=== PATIENT | female | born 1965 | race Caucasian/White ===

== ENCOUNTER → 2017-04-20 | Outpatient (CLI) | payer BC ==
[~2017-04-20] MED LIST: BCPILLS PO; MULT-506 PO
== END | disposition home or self-care (01) ==
LOC: C.LAB 07:37
PROVIDERS: ATTEND Nutritionist
DX: R53.83 Other fatigue (principal)

== ENCOUNTER → 2017-08-14 | Outpatient (CLI) | payer OTHER ==
[~2017-08-14] MED LIST changes: +AMINO ACIDS PO; +ENOX40IN SQ; +HYDR-5688 PO; +MAGNESIUM PO; +VITAMIN C PO; +VITAMIN D PO; +[UNRECOGNIZED DRUG - OTHER] PO
--- NOTE | 2017-08-14 17:44 | DIAGNOSTIC IMAGING REPORT ---
CT L LOWER EXTREMITY WITHOUT CT DOSE: 159.58 mGy.cm CLINICAL HISTORY: Left knee pain. Fracture. TECHNIQUE: Helical images were acquired in the transverse plane. Sagittal and coronal reformatted images were acquired. A dose lowering technique was utilized adhering to the principles of ALARA. COMPARISON STUDY: None. FINDINGS: There is a joint effusion present. No patellar fractures are visualized. No fractures the distal femur are visualized. There is a mildly comminuted longitudinal fracture through the lateral tibial plateau with 13 mm of distraction at the articular surface. There is a nonspecific sclerotic focus within the lateral tibial plateau measuring 22 mm. It is not possible with certainty to determine with this relates to trauma or was pre-existing. There is a mildly comminuted fracture of the proximal fibula with 4 mm of displacement. IMPRESSION: 1. Mildly comminuted longitudinal fracture through the lateral tibial plateau with 13 mm of distraction at the articular surface 2. Mildly comminuted fracture the proximal fibula 3. 22 mm sclerotic lesion within the lateral tibial plateau. While this likely is posttraumatic, a pre-existing sclerotic lesion cannot be excluded Electronically signed by: Kevin Degroot M.D. 08/14/2017 5:42 PM Dictated Date/Time: 08/14/2017 5:37 PM
== END | disposition home or self-care (01) ==
LOC: C.CTS 17:09
PROVIDERS: ATTEND Orthopaedic Surgery Sports Medicine
DX: S82.142A Displaced bicondylar fracture of left tibia, initial encounter for closed fracture (principal); X58.XXXA Exposure to other specified factors, initial encounter; M89.9 Disorder of bone, unspecified

== ENCOUNTER → 2017-08-17 | Outpatient (CLI) | payer OTHER ==
[~2017-08-17] MED LIST changes: +ACET-24 PO; +RXC5 PO
[2017-08-17 18:00] LABS: BASO % 0.4 %; BASO ABS # 0.04 K/uL (0-0.2); EOS % 2.2 %; HEMATOCRIT 36.5 % (37-47); HEMOGLOBIN 11.4 g/dL (12.0-16.0); IG# 0.03 K/uL (0.00-0.02); LYMPH % 19.4 %; MEAN CELL VOLUME 77.3 fL (80-100); MEAN CORPUSCULAR HEMOGLOBIN 24.2 pg (25-34); MEAN CORPUSCULAR HGB CONC 31.2 g/dl (32-36); MEAN PLATELET VOLUME 8.5 fL (7.4-10.4); MONO % 8.8 %; MONO ABS # 0.82 K/uL (0.11-0.59); NEUT % 68.9 %; PLATELET COUNT 570 K/uL (130-400); RED CELL DISTRIBUTION WIDTH CV 17.5 % (11.5-14.5); RED CELL DISTRIBUTION WIDTH SD 49.1 fL (36.4-46.3); WHITE BLOOD COUNT 9.29 K/uL (4.8-10.8)
[2017-08-17 18:04] LABS: INR 0.9 (0.9-1.1); PTT PATIENT 26.2 SECONDS (21.0-31.0)
[2017-08-17 18:29] LABS: BLOOD UREA NITROGEN 19 mg/dl (7-18); CALCIUM 9.7 mg/dl (8.5-10.1); CARBON DIOXIDE 28 mmol/L (21-32); CREATININE 0.96 mg/dl (0.60-1.20); GLUCOSE 93 mg/dl (70-99); POTASSIUM 3.9 mmol/L (3.5-5.1); SODIUM 139 mmol/L (136-145)
== END | disposition home or self-care (01) ==
LOC: C.LAB 16:59
PROVIDERS: ATTEND Orthopaedic Surgery Sports Medicine
DX: Z01.812 Encounter for preprocedural laboratory examination (principal); Z01.810 Encounter for preprocedural cardiovascular examination

== ENCOUNTER 2017-08-18 13:28 | Inpatient (IN) | payer OTHER ==
[2017-08-17 15:26] VITALS: BMI 29.0
--- NOTE | 2017-08-17 21:35 | HISTORY & PHYSICAL EXAMINATION ---
DATE OF ADMISSION: 08/18/2017 CHIEF COMPLAINT: Left knee injury. HISTORY OF PRESENT ILLNESS: This is a 52-year-old female patient of Dr. Vargas'park complaining of a left knee injury approximately 3 weeks ago. The patient was skiing in [place] and sustained a knee injury. She was diagnosed with a tibial plateau fracture and wished to proceed with an open reduction internal fixation of a tibial plateau fracture. PAST MEDICAL HISTORY: Obesity. Otherwise, the patient is a very healthy 52-year-old female with no heart problems, lung problems, diabetes or cancer history. FAMILY HISTORY: Noncontributory. REVIEW OF SYSTEMS: The patient complains of recent left knee pain and dysfunction. Otherwise, denies any shortness of breath, chest pain, nausea, vomiting or any other joint complaints. SOCIAL HISTORY: Nonsmoker, occasional drinker. SURGICAL HISTORY: . MEDICATIONS: No regular medications. ALLERGIES: No known drug allergies. PHYSICAL EXAMINATION: GENERAL: Well-developed, well-nourished 52-year-old female in no acute distress. She is alert and oriented x3 and pleasant. HEENT: Normocephalic, atraumatic. Extraocular motions are intact. Pupils are equal and reactive to light. HEART: Regular rate and rhythm, no murmurs appreciated. LUNGS: Clear. ABDOMEN: Soft and nontender. EXTREMITIES: Left knee is neurologically and neurovascularly intact. Range of motion and strength testing were deferred. DIAGNOSES: Left knee lateral tibial plateau fracture with a history of obesity. PLAN: The patient was advised of her diagnosis. Indications, risks, benefits, postop course have all been reviewed. The patient wished to proceed with a left knee ORIF lateral tibial plateau fracture. Necessary consent forms, preoperative testing clearances will be obtained. [facility] INSANEDorothea
[~2017-08-18] VITALS: Ht 170.2 cm; Wt 86.4 kg
[~2017-08-18 13:28] MED LIST changes: -ACET-24 PO; -BCPILLS PO; +CEFAZOLIN 2000MG IV PUSH 15 ML IV SCH; -RXC5 PO
[2017-08-18 13:53] VITALS: BP 126/87; PULSE 104; TEMP 36.7; O2SAT 99; Ht 170.2 cm; Wt 86.4 kg
[2017-08-18] MEDS ORDERED: EpHEDrine SULFATE INJ 50 MG/ML AMP IV PRN (15:00)
[2017-08-18] MEDS ORDERED: ATROPINE SULFATE 0.1 MG/ML 5ML SYR IV PRN (15:00)
[2017-08-18] MEDS ORDERED: ONDANSETRON INJ 2 MG/ML 2 ML VIAL IV PRN ×2 (15:00→19:30)
[2017-08-18] MEDS ORDERED: BACITRACIN 50000 UNIT VIAL ONE (15:18)
[2017-08-18] MEDS ORDERED: MIDAZOLAM HCL 1 MG/ML 2ML VIAL ONE (15:58)
[2017-08-18] MEDS ORDERED: FENTANYL CITRATE INJ 50 MCG/1 ML 2 ML VIAL ONE ×3 (15:59→19:08)
--- NOTE | 2017-08-18 15:59 | History & Physical Bridge Note ---
H&P Re-Evaluation Bridge Note: I have examined the patient, reviewed the History & Physical and in the interval since the performance of the History & Physical I have noted the following changes of clinical significance: No changes noted
[2017-08-18] MEDS ORDERED: HYDROmorphone INJ 2 MG/ML SYR/VIAL ONE ×2 (16:26→20:06)
[2017-08-18] MEDS ORDERED: LIDOCAINE HCL 2% 2 ML VIAL (20MG/ML) ONE (18:42)
[2017-08-18] MEDS ORDERED: ONDANSETRON INJ 2 MG/ML 2 ML VIAL ONE (18:42)
[2017-08-18] MEDS ORDERED: LARYING-O-JET KIT (LTA) ONE (18:42)
[2017-08-18] MEDS ORDERED: ROCURONIUM BROMIDE 10 MG/ML 5 ML VIAL IV ONE (18:42)
[2017-08-18] MEDS ORDERED: PROPOFOL IV EMULSION 10 MG/ML 20 ML VIAL IV ONE (18:42)
[2017-08-18] MEDS ORDERED: DEXAMETHASONE SOD INJ 4 MG/ML VIAL ONE (18:42)
[2017-08-18] MEDS ORDERED: NEOSTIGMINE METHYLSULFATE 5 MG/5 ML SYR ONE (19:04)
[2017-08-18] MEDS ORDERED: GLYCOPYRROLATE INJ 0.2 MG/ML VIAL ONE (19:04)
--- NOTE | 2017-08-18 19:23 | [facility] Post Operative Brief Note ---
Immediate Operative Summary Operative Date Aug 18, 2017. Pre-Operative Diagnosis Left knee displaced lateral tibial plateau fracture,proximal comminuted fibula fracture Post-Operative Diagnosis same with, left peripheral lateral meniscal tear Procedure(s) Performed Left Knee Open Reduction Internal Fixation Tibial Plateau Fracture,arthrotomomy with Left Lateral Meniscal Repair Surgeon Dr. Vargas Playground Monitor Surgeon(s) Sanjay PAUL Estimated Blood Loss 25ml Findings Consistent with Post-Op Diagnosis Specimens none per surgeon Drains 2 hemovac Anesthesia Type General Complication(s) none Disposition Disposition: Recovery Room / PACU
[2017-08-18] MEDS: SODIUM CHLORIDE 0.9% 1000ML 1,000 ML IV SCH (19:25)
[2017-08-18] MEDS ORDERED: OXYCODONE HCL IR 5 MG TAB (IMMEDIATE RELEASE) PO PRN (19:30)
[2017-08-18] MEDS ORDERED: ZOLPIDEM TARTRATE 5 MG TAB PO PRN (19:30)
[2017-08-18] MEDS ORDERED: CEFAZOLIN IV 2,000 MG in DEXTROSE 5% 50ML 50 ML IV SCH (19:30)
[2017-08-18] MEDS ORDERED: NALOXONE HCL 0.4 MG/1 ML VIAL/CARP IV PRN (19:30)
[2017-08-18] MEDS ORDERED: METOCLOPRAMIDE HCL INJ 5 MG/ML 2 ML VIAL IV PRN (19:30)
--- NOTE | 2017-08-18 19:31 | DIAGNOSTIC IMAGING REPORT ---
L KNEE 1 OR 2 VIEWS CLINICAL HISTORY: LT ORIF TIBIAL PLATEAU COMPARISON STUDY: Left knee CT 08/14/2017. FINDINGS: Total fluoroscopy time is 2 minutes and 19 seconds. 3 fluoroscopic spot images of the left knee. Lateral cortical plate transfixed with screws bridging the lateral tibial plateau fracture. The hardware appears intact. Redemonstration of a displaced fracture at the fibular head. IMPRESSION: Fluoroscopy provided for internal fixation of a lateral tibial plateau fracture. Electronically signed by: Thor Mueller M.D. 08/18/2017 7:30 PM Dictated Date/Time: 08/18/2017 7:29 PM
[2017-08-18] MEDS: FENTANYL CITRATE INJ 50 MCG/1 ML 2 ML VIAL IV PRN ×2 (19:41→19:46)
[2017-08-18] MEDS: HYDROmorphone INJ 1 MG/ML SYR IV PRN ×7 (19:48→20:18)
[2017-08-18] MEDS ORDERED: IV FLUIDS COMPLETED PRN (20:15)
--- NOTE | 2017-08-18 20:25 | Anesthesiology Progress Note ---
Anesthesia Post Op Note Date & Time Aug 18, 2017 at 20:24 Vital Signs Pain Intensity: 8 Vital Signs Past 12 Hours Date Time Temp Pulse Resp B/P (MAP) Pulse Ox O2 Delivery O2 Flow Rate FiO2 08/18/17 20:01 153/90 08/18/17 19:58 70 12 99 08/18/17 19:58 71 12 08/18/17 19:58 36.8 67 16 153/90 99 Nasal Cannula 2 08/18/17 19:56 148/91 08/18/17 19:53 69 8 08/18/17 19:53 69 8 96 08/18/17 19:50 157/94 08/18/17 19:48 68 8 100 08/18/17 19:48 68 8 08/18/17 19:47 75 16 100 08/18/17 19:47 76 16 08/18/17 19:46 164/100 08/18/17 19:46 164/100 08/18/17 19:43 70 8 08/18/17 19:43 70 8 08/18/17 19:43 71 8 100 08/18/17 19:43 71 8 100 08/18/17 19:41 151/105 08/18/17 19:41 151/105 08/18/17 19:38 77 14 08/18/17 19:38 77 14 08/18/17 19:38 78 14 100 08/18/17 19:38 78 14 100 08/18/17 19:36 148/104 08/18/17 19:36 148/104 08/18/17 19:33 90 13 156/112 100 08/18/17 19:33 91 13 08/18/17 19:33 36.3 87 12 156/112 (117) 100 Oxymask 10 08/18/17 19:33 91 13 08/18/17 19:33 90 13 156/112 100 08/18/17 13:53 36.7 104 20 126/87 (100) 99 Room Air Notes Mental Status: alert / awake / arousable, participated in evaluation Pt Amnestic to Procedure: Yes Nausea / Vomiting: adequately controlled Pain: adequately controlled, improving with treatment Airway Patency, RR, SpO2: stable & adequate BP & HR: stable & adequate Hydration State: stable & adequate Anesthetic Complications: no major complications apparent DIRECTOR PHARMACOLOGY to be started in PACU.
[2017-08-18] MEDS ORDERED: MoRPHine SULFATE 1 MG/ML 50 ML PCA CASS ONE (20:29)
[2017-08-18 21:00] VITALS: BP 137/80; PULSE 74; TEMP 37.4; O2SAT 99
[2017-08-18 21:38] VITALS: BP 143/86; PULSE 65; TEMP 36.8; O2SAT 99
--- NOTE | 2017-08-18 21:43 | OPERATIVE REPORT ---
DATE OF OPERATION: 08/18/2017 INDICATION FOR PROCEDURE: The patient is a 52-year-old female who was skiing in [place]. She injured her left knee. Sustained a significant split displaced comminuted lateral tibial plateau fracture with proximal fibular comminuted fracture. She had an unstable knee. She is unable to ambulate. She was treated in [place] by immobilization and she was placed on Lovenox. She returned [place] 5 days later, was evaluated, had a CT scan and this verified the comminuted split fracture. There was one depressed fragment which was angulated into smaller comminuted fragments. The injury is closed. PREOPERATIVE DIAGNOSIS: Left knee comminuted lateral tibial plateau fracture, split depression with a comminuted proximal fibular fracture. POSTOPERATIVE DIAGNOSIS: Same including a lateral meniscus tear peripheral 2/3 disruption from the capsule. PROCEDURE: Left knee ORIF tibial plateau fracture with a Synthes locking lateral buttress plate with an arthrotomy of the knee required to perform a open lateral meniscus repair. SURGEON: Ruddy Vargas MD. [employer] ARCHITECT: HUMBERTO Washburn. ANESTHESIA: General. OPERATIVE PROCEDURE: The patient was taken to the operating room, anesthetized under general anesthetic. Pneumatic tourniquet placed on left upper thigh. She had moderate swelling of the knee, calf and down to the foot with old ecchymosis. No fracture blisters. No skin problems. We examined her knee. She could have valgus instability, but no varus instability and her Smitha exam was stable with a firm endpoint. The pneumatic tourniquet was placed on left upper thigh. Left lower extremity was prepped and draped with ChloraPrep. Leg was elevated, exsanguinated with Esmarch bandage. Pneumatic tourniquet was raised to 350 mmHg. An anterior incision was made across the knee staying just lateral to the midline starting around the proximal metaphysis diaphysis of the tibia extending up just lateral to the patella and about 2.5 to 3 cm proximal to the patella just to the lateral side. Skin was incised sharply. Subcutaneous flaps were elevated. The tibialis anterior fascia was split leaving a cuff of tissue for repair adjacent to the tibia anteriorly. This incision was taken up into the fracture line. The fracture line was just medial to Gerdy's tubercle, but lateral to the patella tendon attachment which was completely intact to the anterior tibia. The incision was carried up through the lateral retinaculum. Then we made an arthrotomy in the knee joint to evacuate any hematoma, inspected the knee joint which demonstrate she had a significant lateral meniscus tear and peripheral tear with displacement. The meniscus was torn from the popliteus fossa around to the anterior meniscus but the root attachment was intact anteriorly and posteriorly. At this time, we hinged open the fracture site, irrigated out the hematoma, elevated the one large fragment that was in more of a vertical position, removed several comminuted fragments and some of them had articular surface, but they were too small to whipple back in a meaningful fashion. There was some comminution at the spike of the shaft noted as well. The proximal fragment was then exposed by releasing Gerdy's tubercle and the IT band off the fragment leaving the retinacular and capsular attachments intact to the tibia and reflecting the IT band posteriorly and subperiosteally bring up the tibialis anterior off the bone fragment and some of the shaft, so we could place the plate along the lateral shaft of the tibia and around the proximal metaphysis of the joint just below the joint line. At this point, had to first manipulate the meniscus, so we would not have it captured within the fracture site and to do that, we had to place a Vicryl traction suture in the meniscus and then subsequently I placed four #2 FiberWire sutures in a vertical fashion through the tear from the popliteus fossa to anterior. Then we placed the traction sutures out through the arthrotomy, so we lift the meniscus up and reduce the lateral split fragment to the tibia. It was reduced, held in position. We visualized this on fluoroscopic guidance and then placed the temporary K-wire to maintain the elevation and alignment and applied the plate. Then used a clamp to help close the fracture and then placed a lag screw through one of the proximal holes in the middle of the plate a second hole from the anterior with a partially threaded lag screw. We got bicortical fixation, so we could lag this tightly compressing the fracture. Then the plate was lagged with another cortical screw which was fully threaded cortical screw to the shaft. The plate was the lower profile L-shaped lateral Synthes locking periarticular tibial plateau fracture plate which was a 10-hole plate, 6 holes distal. The small fragment that we elevated up, we manipulated slightly to obtain a near anatomic alignment. There was within a millimeter step off noted which was accepted. The plate was then transfixed with a fully threaded locking screws proximally in the proximal plate from anterior to posterior. They placed 3 more kickstand screws, replaced the proximal partially threaded cortical lag screw for a locking screw and then filled the remainder of the distal holes with locking screws. The fixation was stable. After copious irrigation, the meniscus was then repaired placing the sutures through the meniscus, through the capsule laterally and tying the sutures down and then tying them to each other for further reinforcement and then the Vicryl suture was passed through some of the anterior capsule as well and tied down as well. We had anatomic repair of the meniscus. Then we did leave the tourniquet down, there was just over 2 hours. There was no significant bleeding identified as we closed remainder of the knee. I placed a Hemovac drain into the knee joint and one deep to the tibialis anterior muscle and we brought out anterolaterally. Then the knee joint capsule was closed with [id number] #1 Vicryl sutures. This was done after copiously irrigating the joint and the wound with bulb syringe irrigation with bacitracin. The lateral retinaculum was closed to the IT band proximally and the tibialis anterior fascia was closed distally over the drain with [id number] #1 Vicryl sutures. Then, the subcutaneous tissue closed inverted 2-0 Vicryl, skin was closed with jude. We did make 1 small incision laterally through subcutaneous tissues to place one of the posterior most lateral buttress screw because the angle was too difficult to get with her moderately obese leg and the location of the incision. We carefully placed the small incision during that part of the procedure with small lucy in the skin with a blunt hemostat and made sure it was anterior to the peroneal nerve location and that was done under direct visualization. That was closed with jdue as well. Sterile dressings were applied and a hinged double upright knee brace. The patient tolerated the procedure well without complication at this time. HUMBERTO Washburn was my assistant prosecuting attorney. He functioned as assistant prosecuting attorney throughout the entire procedure. He assisted in patient positioning, prepping, draping, leg positioning, soft tissue retraction, instrument management and assisted in the subcutaneous and skin closure and will participate in postoperative care of the patient. I attest to the content of the Intraoperative Record and any orders documented therein. Any exception s are noted below.
[2017-08-18] MEDS: D5W AND 1/2NSS + 20MEQ KCL 1,000 ML IV SCH (21:44)
[2017-08-18] MEDS: ACETAMINOPHEN 500 MG TAB PO SCH (21:45)
[2017-08-18 22:01] VITALS: BP 143/77; PULSE 69; TEMP 37; O2SAT 100
[2017-08-18 22:56] VITALS: BP 131/84; PULSE 72; TEMP 36.8; O2SAT 99
[2017-08-18] MEDS: MoRPHine SULFATE 1 MG/ML 50 ML PCA CASS IV PRN (23:01)
[2017-08-18] MEDS: CEFAZOLIN IV 2,000 MG in SYRINGE 0 ML IV SCH (23:31)
[2017-08-19 00:07] VITALS: BP 134/84; PULSE 80; TEMP 37; O2SAT 99
[2017-08-19 03:45] VITALS: BP 149/93; PULSE 97; TEMP 37.1; O2SAT 100
[2017-08-19] MEDS: ACETAMINOPHEN 500 MG TAB PO SCH ×3 (05:23→21:33)
[2017-08-19 06:19] LABS: HEMATOCRIT 32.8 % (37-47); HEMOGLOBIN 9.9 g/dL (12.0-16.0); MEAN CELL VOLUME 77.9 fL (80-100); MEAN CORPUSCULAR HEMOGLOBIN 23.5 pg (25-34); MEAN CORPUSCULAR HGB CONC 30.2 g/dl (32-36); MEAN PLATELET VOLUME 8.4 fL (7.4-10.4); PLATELET COUNT 475 K/uL (130-400); RED CELL DISTRIBUTION WIDTH CV 17.3 % (11.5-14.5); WHITE BLOOD COUNT 12.32 K/uL (4.8-10.8)
[2017-08-19 06:49] LABS: CALCIUM 8.5 mg/dl (8.5-10.1); CREATININE 0.86 mg/dl (0.60-1.20); POTASSIUM 4.4 mmol/L (3.5-5.1)
[2017-08-19] MEDS: D5W AND 1/2NSS + 20MEQ KCL 1,000 ML IV SCH ×2 (07:32→17:31)
[2017-08-19] MEDS: CEFAZOLIN IV 2,000 MG in SYRINGE 0 ML IV SCH (07:37)
[2017-08-19] MEDS: PANTOprazole SOD 40 MG TAB PO SCH (08:54)
[2017-08-19] MEDS: MULTIVITAMIN TAB PO SCH (08:54)
[2017-08-19] MEDS: ENOXAPARIN 40 MG/0.4 ML SYR SQ SCH (08:55)
--- NOTE | 2017-08-19 09:47 | Orthopedic Progress Note ---
Orthopedic Progress Note Date of Service Aug 19, 2017. Subjective Post OP Day: 1 Reports: feeling well, using MATERIAL ASSISTANT, Denies: complaints, chest pain, SOB, nausea / vomiting, light headedness, calf pain Objective calves soft nontender, N/V intact, capillary refill less than 2 sec., dressing C /D/I, A&O x3, toes mobile Date Time Temp Pulse Resp B/P (MAP) Pulse Ox O2 Delivery O2 Flow Rate FiO2 08/19/17 07:45 Room Air 08/19/17 03:45 37.1 97 16 149/93 (111) 100 Nasal Cannula 2.0 08/19/17 00:07 37.0 80 15 134/84 (101) 99 Nasal Cannula 2.0 08/18/17 23:35 Nasal Cannula 2.0 08/18/17 22:56 36.8 72 16 131/84 (100) 99 Nasal Cannula 2.0 08/18/17 22:01 37.0 69 16 143/77 (99) 100 Nasal Cannula 2.0 08/18/17 21:38 36.8 65 16 143/86 (105) 99 Nasal Cannula 2.0 08/18/17 21:00 99 Nasal Cannula 2.0 08/18/17 21:00 Nasal Cannula 08/18/17 21:00 37.4 74 16 137/80 (99) 99 Nasal Cannula 2.0 08/18/17 20:47 65 16 08/18/17 20:47 65 16 97 08/18/17 20:46 155/75 08/18/17 20:42 69 14 94 08/18/17 20:42 71 14 08/18/17 20:41 142/80 08/18/17 20:37 66 17 08/18/17 20:37 66 14 96 08/18/17 20:36 143/77 08/18/17 20:32 69 8 08/18/17 20:32 68 8 94 08/18/17 20:31 151/81 08/18/17 20:27 65 16 95 08/18/17 20:27 65 16 08/18/17 20:26 150/88 08/18/17 20:22 67 9 08/18/17 20:22 68 9 98 08/18/17 20:21 138/84 08/18/17 20:17 66 12 98 08/18/17 20:17 67 12 08/18/17 20:16 153/87 08/18/17 20:12 65 15 08/18/17 20:12 65 15 95 08/18/17 20:11 147/88 08/18/17 20:07 63 12 99 08/18/17 20:07 64 12 08/18/17 20:06 149/90 08/18/17 20:02 66 11 98 08/18/17 20:02 66 11 08/18/17 20:01 153/90 08/18/17 19:58 70 12 99 08/18/17 19:58 71 12 08/18/17 19:58 36.8 67 16 153/90 99 Nasal Cannula 2 08/18/17 19:56 148/91 08/18/17 19:53 69 8 08/18/17 19:53 69 8 96 08/18/17 19:50 157/94 08/18/17 19:48 68 8 100 08/18/17 19:48 68 8 08/18/17 19:47 75 16 100 08/18/17 19:47 76 16 08/18/17 19:46 164/100 08/18/17 19:46 164/100 08/18/17 19:43 70 8 08/18/17 19:43 70 8 08/18/17 19:43 71 8 100 08/18/17 19:43 71 8 100 08/18/17 19:41 151/105 08/18/17 19:41 151/105 08/18/17 19:38 77 14 08/18/17 19:38 77 14 08/18/17 19:38 78 14 100 08/18/17 19:38 78 14 100 08/18/17 19:36 148/104 08/18/17 19:36 148/104 08/18/17 19:33 90 13 156/112 100 08/18/17 19:33 91 13 08/18/17 19:33 36.3 87 12 156/112 (117) 100 Oxymask 10 08/18/17 19:33 91 13 08/18/17 19:33 90 13 156/112 100 08/18/17 13:53 36.7 104 20 126/87 (100) 99 Room Air Laboratory Results 24 Hours: Test 08/19/17 05:17 Hematocrit 32.8 % Hemoglobin 9.9 g/dL Assessment & Plan Assessment: POD #1, Left Knee ORIF lateral tibial plateau fracture, lateral meniscal repair Plan: NWB LEFT LE W CRUTCHES DVT PROPH- LOVENOX D/C PLAN- HOME LIKELY THURSDAY. Inhouse Planning Pain Management: MATERIAL ASSISTANT, Morphine, PO Tylenol, Oxy IR DVT Prophylaxis: SCDs, Lovenox Discharge Planning Discharge Planning: home Pain Management: PO Tylenol, Oxy IR DVT Prophylaxis: Lovenox Therapy: Physical Therapy, Occupational Therapy
[2017-08-19 11:00] VITALS: BP 123/82; PULSE 78; TEMP 36.6; O2SAT 97
[2017-08-19] MEDS: MoRPHine SULFATE 1 MG/ML 50 ML PCA CASS IV PRN ×3 (14:45→23:00)
[2017-08-19 15:20] VITALS: BP 114/75; PULSE 82; TEMP 36.9; O2SAT 96
[2017-08-19] MEDS: SODIUM CHLORIDE 0.9% 1000ML 1,000 ML IV SCH ×2 (19:19→22:09)
[2017-08-19 20:30] VITALS: BP 129/78; PULSE 89; TEMP 37.4; O2SAT 99
[2017-08-19 22:57] VITALS: BP 138/80; PULSE 92; TEMP 37.2; O2SAT 99
[2017-08-20 03:40] VITALS: BP 126/81; PULSE 90; TEMP 36.4; O2SAT 96
[2017-08-20] MEDS: ACETAMINOPHEN 500 MG TAB PO SCH (05:41)
[2017-08-20 05:55] LABS: HEMATOCRIT 30.8 % (37-47); HEMOGLOBIN 9.4 g/dL (12.0-16.0); MEAN CELL VOLUME 77.8 fL (80-100); MEAN CORPUSCULAR HEMOGLOBIN 23.7 pg (25-34); MEAN CORPUSCULAR HGB CONC 30.5 g/dl (32-36); MEAN PLATELET VOLUME 8.2 fL (7.4-10.4); PLATELET COUNT 405 K/uL (130-400); RED CELL DISTRIBUTION WIDTH CV 17.4 % (11.5-14.5); RED CELL DISTRIBUTION WIDTH SD 49.3 fL (36.4-46.3); WHITE BLOOD COUNT 9.19 K/uL (4.8-10.8)
[2017-08-20 06:32] LABS: CALCIUM 8.3 mg/dl (8.5-10.1); CREATININE 0.73 mg/dl (0.60-1.20); POTASSIUM 3.8 mmol/L (3.5-5.1)
[2017-08-20] MEDS: MoRPHine SULFATE 1 MG/ML 50 ML PCA CASS IV PRN (07:01)
[2017-08-20 07:05] VITALS: BP 123/83; PULSE 88; TEMP 36.8; O2SAT 95
--- NOTE | 2017-08-20 08:23 | Orthopedic Progress Note ---
Orthopedic Progress Note Date of Service Aug 20, 2017. Subjective Post OP Day: 2 Reports: feeling well, pain controlled w PO medications, Denies: complaints, chest pain, SOB, nausea / vomiting, light headedness, calf pain Objective calves soft nontender, N/V intact, capillary refill less than 2 sec., incision C /D/I, A&O x3, toes mobile Date Time Temp Pulse Resp B/P (MAP) Pulse Ox O2 Delivery O2 Flow Rate FiO2 08/20/17 07:05 36.8 88 14 123/83 (96) 95 Room Air 08/20/17 03:40 36.4 90 16 126/81 (96) 96 Room Air 08/19/17 23:45 Room Air 08/19/17 22:57 37.2 92 17 138/80 (99) 99 Room Air 08/19/17 20:30 37.4 89 16 129/78 (95) 99 Room Air 08/19/17 15:20 Room Air 08/19/17 15:20 36.9 82 16 114/75 (88) 96 Room Air 08/19/17 11:00 36.6 78 18 123/82 (96) 97 Room Air Laboratory Results 24 Hours: Test 08/20/17 05:16 Hematocrit 30.8 % Hemoglobin 9.4 g/dL Assessment & Plan Assessment: POD #2, Left Knee ORIF lateral tibial plateau fracture, lateral meniscal repair Plan: NWB LEFT LE W CRUTCHES DVT PROPH- LOVENOX D/C PLAN- HOME LIKELY TODAY DRESSINGS CHANGED AND DRAIN PULLED BY ME TODAY. Inhouse Planning Pain Management: IRON SETTER, Morphine, PO Tylenol, Oxy IR DVT Prophylaxis: SCDs, Lovenox Discharge Planning Discharge Planning: home Pain Management: PO Tylenol, Oxy IR DVT Prophylaxis: Lovenox Therapy: Physical Therapy, Occupational Therapy
[2017-08-20] MEDS ORDERED: RXC5 PO (08:25)
[2017-08-20] MEDS ORDERED: ACET-24 PO (08:25)
[2017-08-20] MEDS ORDERED: ENOX40IN SQ (08:25)
--- NOTE | 2017-08-20 08:28 | Discharge Instructions ---
Discharge Instructions Date of Service Aug 20, 2017. Admission Reason for Admission: Left Knee Displaced Bicondylar Tibia Fracture, Ini Discharge Discharge Diagnosis / Problem: LEFT KNEE ORIG LATERAL TIBIAL PLATEAU, LATERAL MENISCAL REPAIR Discharge Goals Goal(s): Improve function Activity Recommendations Activity Limitations: as noted below . Instructions / Follow-Up Instructions / Follow-Up NON WEIGHT BEARING LEFT LEG WITH WALKER OR CRUTCHES ICE/ ELEVATE NEEDED. DRESSING CHANGES EVERY 1-2 DAYS BRACE WHILE AMBULATING, MAY REMOVE TO ICE. TAKE LOVENOX INJECTIONS ORDERED TO PREVENT BLOOD CLOTS. PAIN MEDICATIONS ORDERED. FOLLOW UP WITH DR. GABRIEL 12-14 DAY POST OP SCHEDULED, CALL [phone] TO CONFIRM. Current Hospital Diet Patient's current hospital diet: Regular Diet Discharge Diet Recommended Diet: Regular Diet Procedures Procedures Performed: Left Knee Open Reduction Internal Fixation Tibial Plateau Fracture,arthrotomomy with Left Lateral Meniscal Repair Pending Studies Studies pending at discharge: no Medical Emergencies . Who to Call and When: Medical Emergencies: If at any time you feel your situation is an emergency, please call 911 immediately. . Non-Emergent Contact Non-Emergency issues call your: Primary Care Provider . "Provider Documentation" section prepared by Sanjay Golden. . [place] Drug Monitoring Program Search Results: patient reviewed within database, no issues identified
[2017-08-20] MEDS: PANTOprazole SOD 40 MG TAB PO SCH (09:16)
[2017-08-20] MEDS: MULTIVITAMIN TAB PO SCH (09:16)
[2017-08-20] MEDS: ENOXAPARIN 40 MG/0.4 ML SYR SQ SCH (09:17)
[2017-08-20 09:18] VITALS: BP 123/83; PULSE 88; TEMP 36.8; O2SAT 95
[2017-08-20] MEDS ORDERED: NURSING VERBAL MED ORDER ONE (10:15)
== END 2017-08-20 13:30 | disposition home or self-care (01) | DRG 489 ==
LOC: C.ACU 13:28 → C.3E 19:34 → ENRESERV 19:51 → OBSVTOIN 08-19 09:50
PROVIDERS: ADMIT Orthopaedic Surgery Sports Medicine; ATTEND Orthopaedic Surgery Sports Medicine
PROC: 0QSH04Z Reposition Left Tibia with Internal Fixation Device, Open Approach (ICD-10-PCS; principal; 2017-08-18 08:45)
PROC: 0SQD0ZZ Repair Left Knee Joint, Open Approach (ICD-10-PCS; principal; 2017-08-18 08:45)
DX: S82.142A Displaced bicondylar fracture of left tibia, initial encounter for closed fracture (principal); S82.832A Other fracture of upper and lower end of left fibula, initial encounter for closed fracture; S83.282A Other tear of lateral meniscus, current injury, left knee, initial encounter; E66.9 Obesity, unspecified; Z51.81 Encounter for therapeutic drug level monitoring; Z68.29 Body mass index [BMI] 29.0-29.9, adult; X58.XXXA Exposure to other specified factors, initial encounter; Y93.23 Activity, snow (alpine) (downhill) skiing, snowboarding, sledding, tobogganing and snow tubing; Y99.8 Other external cause status